=== PATIENT | male | born 1980 | race Caucasian/White ===

== ENCOUNTER 2017-05-24 12:33 | Emergency (ER) | payer SELFPAY ==
--- NOTE | 2017-05-24 13:05 | EDM.PDOC ---
ED HPI GENERAL MEDICAL PROBLEM - General Chief Complaint: Lower Extremity Injury/Pain Stated Complaint: KNEE PAIN IN LT Time Seen by Provider: 05/24/17 12:58 - History of Present Illness INITIAL COMMENTS - FREE TEXT/NARRATIVE: HISTORY AND PHYSICAL: History of present illness: Patient 37-year-old white male presents with concern of acute lower extremity injury and a formal fall which he sustained a contusion to his mid tibia and an injury to his left knee. He denies other trauma or concern Review of systems: As per history of present illness and below otherwise all systems reviewed and negative. Past medical history: As per history of present illness and as reviewed below otherwise noncontributory. Surgical history: As per history of present illness and as reviewed below otherwise noncontributory. Social history: No reported history of drug or alcohol abuse. Family history: As per history of present illness and as reviewed below otherwise noncontributory. Physical exam: HEENT: Atraumatic, normocephalic, pupils reactive, negative for conjunctival pallor or scleral icterus, mucous membranes moist, throat clear, neck supple, nontender, trachea midline. Lungs: Clear to auscultation, breath sounds equal bilaterally, chest nontender. Heart: S1S2, regular, negative for clicks, rubs, or JVD. Abdomen: Soft, nondistended, nontender. Negative for masses or hepatosplenomegaly. Negative for costovertebral tenderness. Pelvis: Stable nontender. Genitourinary: Deferred. Rectal: Deferred. Extremities: Patient has some small ecchymosis and tenderness noted at the level of the mid left tibia his left knee has no gross effusion joint is grossly stable is no crepitation or point tenderness CMS in neurovascular exam is unremarkable Neuro: Awake, alert, oriented. Cranial nerves II through XII unremarkable. Cerebellum unremarkable. Motor and sensory unremarkable throughout. Exam nonfocal. Diagnostics: X-ray left knee/tib-fib Therapeutics: Knee immobilizer/crutches Impression: #1 acute lower extremity injury (contusion tib-fib) #2 acute left knee injury Definitive disposition and diagnosis as appropriate pending reevaluation and review of above. - Related Data Allergies Allergy/AdvReac Type Severity Reaction Status Date / Time No Known Allergies Allergy Verified 10/17/14 09:18 Home Meds: Home Meds . [No Known Home Meds] 10/17/14 [History] Social & Family History - Tobacco Use Smoking Status *Q: Current Every Day Smoker Years of Tobacco use: 13 Used Tobacco, but Quit: No Second Hand Smoke Exposure: No - Alcohol Use Days Per Week of Alcohol Use: 0 - Recreational Drug Use Recreational Drug Use: No Review of Systems - Review of Systems Review Of Systems: ROS reveals no pertinent complaints other than HPI. ED EXAM, GENERAL - Physical Exam Exam: See Below (See dictation) Departure - Departure Time of Disposition: 14:01 Disposition: Home, Self-Care 01 Condition: Good Clinical Impression: Knee injury, Contusion - Discharge Information Referrals: PCP,None [Primary Care Provider] - Forms: ED Department Discharge Additional Instructions: The following information is given to patients seen in the emergency department who are being discharged to home. This information is to outline your options for follow-up care. We provide all patients seen in our emergency department with a follow-up referral. The need for follow-up, as well as the timing and circumstances, are variable depending upon the specifics of your emergency department visit. If you don't have a primary care physician on staff, we will provide you with a referral. We always advise you to contact your personal physician following an emergency department visit to inform them of the circumstance of the visit and for follow-up with them and/or the need for any referrals to a consulting specialist. The emergency department will also refer you to a specialist when appropriate. This referral assures that you have the opportunity for followup care with a specialist. All of these measure are taken in an effort to provide you with optimal care, which includes your followup. Under all circumstances we always encourage you to contact your private physician who remains a resource for coordinating your care. When calling for followup care, please make the office aware that this follow-up is from your recent emergency room visit. If for any reason you are refused follow-up, please contact the [facility] emergency department at and asked to speak to the emergency department charge nurse. [facility] [address] [place] [address], [address] [place] [address] Knee immobilizer/crutches as directed Motrin/Tylenol as discussed call to schedule routine appointment with orthopedic clinic above return as needed as discussed
--- NOTE | 2017-05-24 13:51 | CR ---
EXAMINATION: Left tibia and fibula and left knee HISTORY: Pain COMPARISON: None TECHNIQUE: 2 views of the left tibia and fibula and 3 views of the left knee. FINDINGS: There is no acute osseous abnormality, dislocation, or fracture. No joint effusion identifi ed. Joint spaces are preserved. Small Achilles insertional enthesophyte. Mild soft tissue edema versus varices noted along the lateral aspect of the leg. IMPRESSION: 1. No acute osseous abnormalities.
[2017-05-24 14:40] VITALS: BP 120/68
== END 2017-05-24 14:38 | disposition home or self-care (01) ==
LOC: MW.ED 12:33
DX: S80.02XA Contusion of left knee, initial encounter (principal); F17.210 Nicotine dependence, cigarettes, uncomplicated; W19.XXXA Unspecified fall, initial encounter
CPT/HCPCS: 73562-26-LT; 73562-LT; 73590-26-LT; 73590-LT; 99282; 99283

== ENCOUNTER 2018-04-09 06:19 | Emergency (ER) | payer BC ==
[2018-04-09] MEDS ORDERED: Sodium Chloride 0.9% 10 ML Syringe FLUSH PRN (06:38)
[2018-04-09] MEDS ORDERED: Sodium Chloride 0.9% 2.5 ML Syringe FLUSH PRN (06:38)
[2018-04-09] MEDS ORDERED: Ondansetron 4 MG/2 ML SDV IVPUSH ONE (06:47)
[2018-04-09] MEDS ORDERED: Sodium Chloride 0.9% 1,000 ML IV ONE (06:47)
[2018-04-09] MEDS ORDERED: Morphine 4 MG/ML Syringe IVPUSH ONE (06:47)
--- NOTE | 2018-04-09 07:02 | EDM.PDOC ---
ED HPI GENERAL MEDICAL PROBLEM - General Chief Complaint: Abdominal Pain Stated Complaint: LOWER LEFT ABDOMINAL PAIN Time Seen by Provider: 04/09/18 06:23 Source of Information: Reports: Patient History Limitations: Reports: No Limitations - History of Present Illness INITIAL COMMENTS - FREE TEXT/NARRATIVE: History of present illness: []Patient awoke at 4:30 this morning with sharp severe left inguinal pain. He vomited one time with the pain and states he has the chills but no fevers. Has had a bowel movement without diarrhea and is passing gas. 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 Review of systems: As per history of present illness and below otherwise all systems reviewed and negative. Past medical history: As per history of present illness and as reviewed below otherwise noncontributory. Surgical history: As per history of present illness and as reviewed below otherwise noncontributory. Social history: No reported history of drug or alcohol abuse. Family history: As per history of present illness and as reviewed below otherwise noncontributory. Physical exam: General: Well developed, well nourished in NAD HEENT: Atraumatic, normocephalic, pupils reactive, negative for conjunctival pallor or scleral icterus, mucous membranes moist, throat clear, neck supple, nontender, trachea midline. Lungs: Clear to auscultation, breath sounds equal bilaterally, chest nontender. Heart: S1S2, regular, negative for clicks, rubs, or JVD. Abdomen: Soft, nondistended, nontender. Negative for masses or hepatosplenomegaly. Negative for costovertebral tenderness. Pelvis: Stable nontender. Genitourinary: Deferred. Rectal: Deferred. Extremities: Atraumatic, negative for cords or calf pain. Neurovascular unremarkable. Neuro: Awake, alert, oriented. Cranial nerves II through XII unremarkable. Cerebellum unremarkable. Motor and sensory unremarkable throughout. Exam nonfocal. Diagnostics: []CBC and chemistry are negative, UA shows large blood, CT abdomen and pelvis is negative for kidney stone, bowel obstruction, hernia or any other abnormalities. Therapeutics: []IV hydrated, morphine, Pepcid and Zofran given with relief of symptoms Impression: []Hematuria, left inguinal pain likely stone passed prior to CT Plan: []Increase fluids follow-up with primary care return if symptoms worsen or change Definitive disposition and diagnosis as appropriate pending reevaluation and review of above. Left Lower Abdomen Pain Score (Numeric/FACES): 10 - Related Data Allergies Allergy/AdvReac Type Severity Reaction Status Date / Time No Known Allergies Allergy Verified 04/09/18 06:38 Home Meds: Home Meds . [No Known Home Meds] 10/17/14 [History] Past Medical History HEENT History: Reports: Impaired Vision - Past Surgical History HEENT Surgical History: Reports: Tonsillectomy Social & Family History - Family History Family Medical History: Noncontributory - Caffeine Use Caffeine Use: Reports: None ED ROS GENERAL - Review of Systems Review Of Systems: See Below (The history of present illness) ED EXAM, GI/ABD - Physical Exam Exam: See Below (See history of present illness) Course - Vital Signs Last Recorded V/S: Last Vital Signs Temp 97.4 F 04/09/18 07:30 Pulse 55 L 04/09/18 07:30 Resp 18 04/09/18 07:30 BP 142/74 H 04/09/18 07:30 Pulse Ox 98 04/09/18 07:30 - Orders/Labs/Meds Orders: Active Orders 24 hr Category Date Time Status Patient Status [ADT] Stat ADT 04/09/18 08:10 Active Abdomen Pelvis w Cont [CT] Stat Exams 04/09/18 07:14 Taken Chest 2V [CR] Stat Exams 04/09/18 09:39 Taken UA W/MICROSCOPIC [URIN] Stat Lab 04/09/18 09:02 Ordered Saline Lock Insert [OM.PC] Stat Oth 04/09/18 06:38 Ordered Labs: Laboratory Tests 04/09/18 04/09/18 04/09/18 Range/Units 06:51 06:51 09:02 WBC 9.78 (4.0-11.0) K/uL RBC 5.08 (4.50-5.90) M/uL Hgb 16.5 (13.0-17.0) g/dL Hct 46.7 (38.0-50.0) % MCV 91.9 (80.0-98.0) fL MCH 32.5 H (27.0-32.0) pg MCHC 35.3 (31.0-37.0) g/dL RDW Std Deviation 49.0 (28.0-62.0) fl RDW Coeff of Donte 14 (11.0-15.0) % Plt Count 274 (150-400) K/uL MPV 11.40 (7.40-12.00) fL Neut % (Auto) 68.6 (48.0-80.0) % Lymph % (Auto) 18.9 (16.0-40.0) % Bell % (Auto) 9.1 (0.0-15.0) % Eos % (Auto) 2.9 (0.0-7.0) % Baso % (Auto) 0.5 (0.0-1.5) % Neut # (Auto) 6.7 H (1.4-5.7) K/uL Lymph # (Auto) 1.9 (0.6-2.4) K/uL Bell # (Auto) 0.9 H (0.0-0.8) K/uL Eos # (Auto) 0.3 (0.0-0.7) K/uL Baso # (Auto) 0.1 (0.0-0.1) K/uL Nucleated RBC % 0.0 /100WBC Nucleated RBCs # 0 K/uL Sodium 140 (136-148) mmol/L Potassium 4.0 (3.5-5.1) mmol/L Chloride 106 (98-107) mmol/L Carbon Dioxide 26.2 (21.0-32.0) mmol/L BUN 10 (7.0-18.0) mg/dL Creatinine 1.0 (0.8-1.3) mg/dL Est Cr Clr Drug Dosing 116.52 mL/min Estimated GFR (MDRD) > 60.0 ml/min Glucose 143 H (74-106) mg/dL Calcium 9.6 (8.5-10.1) mg/dL Total Bilirubin 0.4 (0.2-1.0) mg/dL AST 24 (15-37) IU/L ALT 59 (14-63) IU/L Alkaline Phosphatase 92 (46-116) U/L Total Protein 7.7 (6.4-8.2) g/dL Albumin 4.1 (3.4-5.0) g/dL Globulin 3.6 H (2.0-3.5) g/dL Albumin/Globulin Ratio 1.1 L (1.3-2.8) Lipase 105 (73-393) U/L Urine Color YELLOW Urine Appearance CLEAR Urine pH 6.5 (5.0-8.0) Ur Specific Remlap 1.010 (1.001-1.035) Urine Protein NEGATIVE (NEGATIVE) mg/dL Urine Glucose (UA) NEGATIVE (NEGATIVE) mg/dL Urine Ketones NEGATIVE (NEGATIVE) mg/dL Urine Occult Blood LARGE H (NEGATIVE) Urine Nitrite NEGATIVE (NEGATIVE) Urine Bilirubin NEGATIVE (NEGATIVE) Urine Urobilinogen 1.0 (<2.0) EU/dL Ur Leukocyte Esterase NEGATIVE (NEGATIVE) Urine RBC 35-40 (0-2/HPF) Urine WBC 0-2 (0-5/HPF) Ur Epithelial Cells FEW (NONE-FEW) Urine Bacteria FEW (NEGATIVE) Meds: Medications Discontinued Medications Generic Name Dose Route Start Last Admin Trade Name Freq PRN Reason Stop Dose Admin Famotidine 20 mg 04/09/18 09:04 04/09/18 09:17 Pepcid IVPUSH 04/09/18 09:05 20 mg ONETIME ONE Administration Sodium Chloride 1,000 mls @ 999 mls/hr 04/09/18 06:47 04/09/18 07:38 Normal Saline IV 04/09/18 07:47 999 mls/hr .Bolus ONE Administration Iopamidol 100 ml 04/09/18 09:57 04/09/18 09:57 Isovue Multipack-370 (76%) IVPUSH 04/09/18 09:58 100 ml ONETIME STA Administration Morphine Sulfate 4 mg 04/09/18 06:47 04/09/18 07:39 Morphine IVPUSH 04/09/18 06:48 4 mg ONETIME ONE Administration Morphine Sulfate Confirm 04/09/18 07:03 04/09/18 07:55 Morphine Administered 04/09/18 07:04 Not Given Dose 4 mg .ROUTE .STK-MED ONE Morphine Sulfate 4 mg 04/09/18 07:49 04/09/18 07:57 Morphine IVPUSH 04/09/18 07:50 Not Given ONETIME ONE Ondansetron HCl 4 mg 04/09/18 06:47 04/09/18 07:40 Zofran IVPUSH 04/09/18 06:48 4 mg ONETIME ONE Administration Sodium Chloride 10 ml 04/09/18 06:38 Saline Flush FLUSH ASDIRECTED PRN Keep Vein Open Sodium Chloride 2.5 ml 04/09/18 06:38 Saline Flush FLUSH ASDIRECTED PRN Keep Vein Open Departure - Departure Time of Disposition: 10:35 Disposition: Home, Self-Care 01 Condition: Good Clinical Impression: Left inguinal pain Hematuria Qualifiers: Hematuria type: unspecified type Qualified Code(s): R31.9 - Hematuria, unspecified - Discharge Information Referrals: PCP,None [Primary Care Provider] - Forms: ED Department Discharge Additional Instructions: The following information is given to patients seen in the emergency department who are being discharged to home. This information is to outline your options for follow-up care. We provide all patients seen in our emergency department with a follow-up referral. The need for follow-up, as well as the timing and circumstances, are variable depending upon the specifics of your emergency department visit. If you don't have a primary care physician on staff, we will provide you with a referral. We always advise you to contact your personal physician following an emergency department visit to inform them of the circumstance of the visit and for follow-up with them and/or the need for any referrals to a consulting specialist. The emergency department will also refer you to a specialist when appropriate. This referral assures that you have the opportunity for follow-up care with a specialist. All of these measure are taken in an effort to provide you with optimal care, which includes your follow-up. Under all circumstances we always encourage you to contact your private physician who remains a resource for coordinating your care. When calling for follow-up care, please make the office aware that this follow-up is from your recent emergency room visit. If for any reason you are refused follow-up, please contact the [facility] Emergency Department at and asked to speak to the emergency department charge nurse. [facility] Care [address] [place] [address] - My Orders Last 24 Hours: My Active Orders 04/09/18 06:38 Saline Lock Insert [OM.PC] Stat 04/09/18 07:14 Abdomen Pelvis w Cont [CT] Stat 04/09/18 08:10 Patient Status [ADT] Stat 04/09/18 09:02 UA W/MICROSCOPIC [URIN] Stat 04/09/18 09:39 Chest 2V [CR] Stat - Assessment/Plan Last 24 Hours: My Active Orders 04/09/18 06:38 Saline Lock Insert [OM.PC] Stat 04/09/18 07:14 Abdomen Pelvis w Cont [CT] Stat 04/09/18 08:10 Patient Status [ADT] Stat 04/09/18 09:02 UA W/MICROSCOPIC [URIN] Stat 04/09/18 09:39 Chest 2V [CR] Stat
[2018-04-09] MEDS ORDERED: Morphine 2 MG/ML Syringe ONE (07:03)
[2018-04-09 07:21] LABS: CHLORIDE,CL 106 mmol/L (98-107); SODIUM,NA 140 mmol/L (136-148)
[2018-04-09] MEDS ORDERED: Morphine 2 MG/ML Syringe IVPUSH ONE (07:49)
[2018-04-09 08:04] VITALS: BP 142/74
[2018-04-09] MEDS ORDERED: Famotidine 20 MG/2 ML SDV IVPUSH ONE (09:04)
[2018-04-09] MEDS ORDERED: Iopamidol 755 MG/ML 500 ML Multipack Bottle IVPUSH STA (09:57)
--- NOTE | 2018-04-11 15:27 | CT ---
EXAM DATE: 04/09/18 PATIENT'S AGE: 37 Patient: BRIE TAY Facility: [place], [place] Site . Site : 1980 Study: CT Abdomen/Pelvis [id number]/14/2018 8:49:33 AM Ordering Physician: Luciano Fleming Final Report: INDICATION: Left inguinal pain. Recent gastric binding. TECHNIQUE: Multiple axial images were obtained from the diaphragm to symphysis pubis after administration of 100 mL of Isovue-370 intravenously. Sagittal and coronal re- formatted images were obtained. COMPARISON: None. FINDINGS: There is a minimal left pleural effusion associated atelectasis. There is no focal liver lesion. The spleen, pancreas, gallbladder and adrenal glands are unremarkable. There is no mass or hydronephrosis in the kidneys. There are postoperative changes consistent with a gastric bypass. The abdominal aorta is normal in caliber. There is no adenopathy seen. There is no evidence of a bowel obstruction. The appendix is visualized in the right lower quadrant and is unremarkable. There is no free fluid identified in the abdomen or pelvis. There is no inguinal hernia seen on this study. IMPRESSION: 1. Minimal left pleural effusions with associated atelectasis. 2. Status post gastric bypass. Dictated by Mick Babb MD @ 04/09/2018 9:16:19 AM Please note that all CT scans at this facility use dose modulation, iterative reconstruction, and/or weight-based dosing when appropriate to reduce radiation dose to as low as reasonably achievable. Dictated by: Mick Babb MD @ 04/09/2018 09:16:27 (Electronic Signature) Report Signed by Proxy. [facility]
--- NOTE | 2018-04-11 15:36 | CR ---
EXAM DATE: 04/09/18 PATIENT'S AGE: 37 Patient: BRIE TAY Facility: [place], [place] Site . Site : 1980 Study: XRay Chest [id number]/14/2018 10:12:55 AM Ordering Physician: Luciano Fleming Final Report: INDICATION: Pain. Shortness of breath. COMPARISON: None. FINDINGS: PA and lateral views of the chest were obtained. The cardiac silhouette and pulmonary vasculature are within normal limits. The lungs are clear bilaterally. There are degenerative changes in the spine. IMPRESSION: No evidence of acute pulmonary disease. Dictated by Mick Babb MD @ 04/09/2018 10:59:20 AM Dictated by: Mick Babb MD @ 04/09/2018 10:59:40 (Electronic Signature) Report Signed by Proxy. [facility]
== END 2018-04-09 10:51 | disposition home or self-care (01) ==
LOC: MW.ED 06:19
DX: R10.32 Left lower quadrant pain (principal); R31.9 Hematuria, unspecified
CPT/HCPCS: 36415; 71046; 74177; 80053; 81001; 82962; 83690; 85025; 96361; 96374; 96375; 99284; J2270; J2405; J7040; Q9967; 99283; J3490

== ENCOUNTER 2021-05-03 11:15 | Emergency (ER) | payer SELFPAY ==
[2021-05-03] MEDS ORDERED: Albuterol 8 GM Inhaler INH STA (11:47)
--- NOTE | 2021-05-03 11:51 | EDM.PDOC ---
ED HPI GENERAL MEDICAL PROBLEM - General Chief Complaint: Respiratory Problem Stated Complaint: PNEUMONIA Time Seen by Provider: 05/03/21 11:17 - History of Present Illness INITIAL COMMENTS - FREE TEXT/NARRATIVE: History of present illness: [] This patient has been sick for 4 days of upper respiratory symptoms. He has runny nose congestion and cough. Now over the last 4 days he developed chest tightness and difficulty breathing worse with exertion and deep breath. He is a smoker. He is not vaccinated for Covid. 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 He did have bronchitis as an . Review of systems: As per history of present illness and below otherwise all systems reviewed and negative. Past medical history: As per history of present illness and as reviewed below otherwise noncontributory. Surgical history: As per history of present illness and as reviewed below otherwise noncontributory. Social history: No reported history of drug or alcohol abuse. Family history: As per history of present illness and as reviewed below otherwise noncontributory. Physical exam: Constitutional - well developed, well-nourished and in no acute distress HEENT - normocephalic, no evidence of trauma - external nose and mouth normal - no mass in neck and no JVD - mucosae moist EYES - full EOM, PERRL, no icterus - no evidence of inflammation, injection, or drainage Respiratory - no respiratory distress, equal bilateral expansion, lungs with musical rales and wheezes in the upper lung rooney and diminished breath sounds with expiratory wheezes in the lower lung rooney. Cardiovascular - Regular Rhythm with S1 and S2 appreciated and no murmur, gallop or rub. GI - abdomen soft without distension or organomegaly - normal bowel sounds - no guard or rebound Musculoskeletal no gross deformity of long bones or joints - no tenderness, swelling or edema Neurologic - Alert and oriented times four - CN II-XII grossly intact - motor sensory and coordination symmetrically normal Psychiatric - appropriate mood and affect with normal thought content Hematologic - No petechiae or purpura - mucosa appropriate color and sclera not pale - normal nail bed color and refill Integument - no rash or evidence of trauma - normal turgor Diagnostics: [] Therapeutics: [] Impression: [] Plan: [] Definitive disposition and diagnosis as appropriate pending reevaluation and review of above. Generalized Pain Score (Numeric/FACES): 4 - Related Data Allergies Allergy/AdvReac Type Severity Reaction Status Date / Time No Known Allergies Allergy Verified 05/03/21 11:52 Home Meds: Home Meds Azithromycin 250 mg PO DAILY #6 tablet 05/03/21 [Rx] Past Medical History HEENT History: Reports: Impaired Vision Other Gastrointestinal History: Gastric sleeve placed 10 weeks ago - Past Surgical History HEENT Surgical History: Reports: Tonsillectomy Social & Family History - Family History Family Medical History: No Pertinent Family History - Caffeine Use Caffeine Use: Reports: None ED ROS GENERAL - Review of Systems Review Of Systems: Comprehensive ROS is negative, except as noted in HPI. ED EXAM, GENERAL - Physical Exam Exam: See Below Free Text/Narrative:: My physical exam is in the HPI #1 Interpretation EKG Interpretation Comments: EKG sinus rhythm heart rate 65 MO interval 144 QRS axis [address] and T impression normal EKG Course - Vital Signs Text/Narrative:: 12:30 PM patient was improved after the inhaler and instruction with the spacer. COVID-19 test and troponin pending. X-ray read as no acute process other than chronic granulomatous disease in the left side per radiology but to me the left diaphragm is indistinct and suggest along with his clinical presentation and he may have left lower lobe pneumonia. Last Recorded V/S: Last Vital Signs Temp 36.9 C 05/03/21 11:38 Pulse 64 05/03/21 11:38 Resp 18 05/03/21 11:38 BP 121/79 05/03/21 11:38 Pulse Ox 98 05/03/21 11:38 - Orders/Labs/Meds Orders: Active Orders 24 hr Category Date Time Status EKG 12 Lead [EKG Documentation Completion] [RC] STAT Care 05/03/21 11:49 Active RT Post Treatment Assessment [RC] Click to Edit Care 05/03/21 11:47 Active RT Pre-Treatment Assessment [RC] Click to Edit Care 05/03/21 11:47 Active Labs: Laboratory Tests 05/03/21 05/03/21 Range/Units 12:09 12:29 Troponin I < 0.050 (0.000-0.056) ng/mL SARS-CoV-2 RNA (VENESSA) NEGATIVE (NEGATIVE) Meds: Medications Discontinued Medications Generic Name Dose Route Start Last Admin Trade Name Freq PRN Reason Stop Dose Admin Albuterol 8 gm 05/03/21 11:47 05/03/21 12:10 Albuterol 8 Gm Inhaler INH 05/03/21 11:48 1 dose ONETIME STA Administration Departure - Departure Time of Disposition: 13:23 Disposition: Home, Self-Care 01 Condition: Good Clinical Impression: Lower respiratory tract infection, Bronchospasm - Discharge Information Instructions: Bronchospasm, Adult, Community-Acquired Pneumonia, Adult, [id number] Referrals: PCP,None [Primary Care Provider] - Forms: ED Department Discharge Additional Instructions: Drink plenty of fluids [facility] [address] [place] [id number] [id number] The following information is given to patients seen in the emergency department who are being discharged to home. This information is to outline your options for follow-up care. We provide all patients seen in our emergency department with a follow-up referral. The need for follow-up, as well as the timing and circumstances, are variable depending upon the specifics of your emergency department visit. If you don't have a primary care physician on staff, we will provide you with a referral. We always advise you to contact your personal physician following an emergency department visit to inform them of the circumstance of the visit and for follow-up with them and/or the need for any referrals to a consulting specialist. The emergency department will also refer you to a specialist when appropriate. This referral assures that you have the opportunity for follow-up care with a specialist. All of these measure are taken in an effort to provide you with optimal care, which includes your follow-up. Under all circumstances we always encourage you to contact your private physician who remains a resource for coordinating your care. When calling for follow-up care, please make the office aware that this follow-up is from your recent emergency room visit. If for any reason you are refused follow-up, please contact the [facility] Emergency Department at and asked to speak to the emergency department charge nurse. Sepsis Event Note (ED) - Focused Exam Vital Signs: Vital Signs Temp Pulse Resp BP Pulse Ox 05/03/21 11:38 36.9 C 64 18 121/79 98 - My Orders Last 24 Hours: My Active Orders 05/03/21 11:47 RT Post Treatment Assessment [RC] Click to Edit RT Pre-Treatment Assessment [RC] Click to Edit 05/03/21 11:49 EKG 12 Lead [EKG Documentation Completion] [RC] STAT - Assessment/Plan Last 24 Hours: My Active Orders 05/03/21 11:47 RT Post Treatment Assessment [RC] Click to Edit RT Pre-Treatment Assessment [RC] Click to Edit 05/03/21 11:49 EKG 12 Lead [EKG Documentation Completion] [RC] STAT
--- NOTE | 2021-05-03 12:39 | CR ---
INDICATION: Chest tightness. TECHNIQUE: AP portable chest. COMPARISON: Two-view chest April 09, 2018. FINDINGS: Granulomatous change left hemithorax. Both lungs are otherwise clear. Normal heart size, pulmonary vascularity, and included skeleton. IMPRESSION: No acute cardiopulmonary process identified. No significant change other than technique. Dictated by Alex Pollock MD @ 05/03/2021 12:38:[address] Alex Pollock @ May 03 2021 12:38PM
[2021-05-03 13:44] VITALS: BP 119/72; PULSE 77
== END 2021-05-03 13:45 | disposition home or self-care (01) ==
LOC: MW.ED 11:15
DX: J22 Unspecified acute lower respiratory infection (principal); J98.01 Acute bronchospasm; Z20.822 Contact with and (suspected) exposure to COVID-19
CPT/HCPCS: 36415; 71045; 84484; 87635; 93005; 99285; A9270; U0002

== ENCOUNTER 2023-05-05 06:34 | Day surgery (SDC) | payer BC ==
[~2023-05-05 06:34] MED LIST: Lactated Ringers 1,000 ML IV SCH
[2023-05-05] MEDS ORDERED: Ondansetron 4 MG/2 ML SDV IVPUSH PRN (07:28)
[2023-05-05] MEDS ORDERED: fentaNYL 50 MCG/ML SDV IVPUSH PRN (07:28)
[2023-05-05] MEDS ORDERED: HYDROmorphone 1 MG/ML Syringe IVPUSH PRN (07:28)
[2023-05-05] MEDS ORDERED: Naloxone 0.4 MG/ML SDV IVPUSH PRN (07:28)
[2023-05-05] MEDS ORDERED: Albuterol 0.083% 2.5 MG/3 ML Neb Soln NEB PRN (07:28)
[2023-05-05] MEDS ORDERED: droPERidol 5 MG/2 ML SDV IVPUSH PRN (07:28)
[2023-05-05] MEDS ORDERED: Morphine 2 MG/ML SYRINGE IVPUSH PRN (07:28)
[2023-05-05] MEDS ORDERED: Metoclopramide 10 MG/2 ML SDV IVPUSH PRN (07:28)
[2023-05-05] MEDS ORDERED: Bupivacaine 0.25% 30 ML SDV ONE (07:50)
[2023-05-05] MEDS ORDERED: fentaNYL 250 MCG/5 ML SDV ONE (07:50)
[2023-05-05] MEDS ORDERED: Lidocaine 1% with EPINEPHrine 1:100,000 50 ML MDV ONE (07:50)
[2023-05-05] MEDS ORDERED: Propofol 200 MG/20 ML SDV ONE ×3 (07:50→09:24)
[2023-05-05] MEDS ORDERED: Lidocaine 2% 5 ML SDV ONE (07:51)
[2023-05-05] MEDS ORDERED: Ondansetron 4 MG/2 ML SDV ONE ×2 (07:51→09:25)
[2023-05-05] MEDS ORDERED: Dexmedetomidine 200 MCG/2 ML SDV ONE (07:52)
[2023-05-05] MEDS ORDERED: Water For Injection, Sterile 20 ML ONE ×2 (07:52→09:11)
[2023-05-05] MEDS ORDERED: ceFAZolin 2 GM in Sodium Chloride 0.9% 50 ML IV ONE (08:00)
[2023-05-05] MEDS ORDERED: propofoL 50 ML ONE (08:52)
[2023-05-05] MEDS ORDERED: ceFAZolin 2 GM Vial ONE (09:11)
[2023-05-05] MEDS ORDERED: Ketorolac 30 MG/ML SDV ONE (09:25)
[2023-05-05 11:11] VITALS: BP 98/54; PULSE 55
== END 2023-05-05 11:20 | disposition home or self-care (01) ==
LOC: MW.SDS 06:34
PROVIDERS: ATTEND Orthopaedic Surgery
DX: S83.232A Complex tear of medial meniscus, current injury, left knee, initial encounter (principal); M24.10 Other articular cartilage disorders, unspecified site; E66.3 Overweight; E66.01 Morbid (severe) obesity due to excess calories; Z87.891 Personal history of nicotine dependence; Z68.39 Body mass index [BMI] 39.0-39.9, adult
CPT/HCPCS: 29881; J0131; J0690; J1885; J2405; J2704; J3010; J3490; J7120

== ENCOUNTER 2023-08-25 08:26 | Day surgery (SDC) | payer BC ==
[~2023-08-25 08:26] MED LIST changes: +Albuterol 0.083% 2.5 MG/3 ML Neb Soln NEB PRN; +HYDROmorphone 1 MG/ML Syringe IVPUSH PRN; +Metoclopramide 10 MG/2 ML SDV IVPUSH PRN; +Morphine 2 MG/ML SYRINGE IVPUSH PRN; +Naloxone 0.4 MG/ML SDV IVPUSH PRN; +Ondansetron 4 MG/2 ML SDV IVPUSH PRN; +droPERidol 5 MG/2 ML SDV IVPUSH PRN
[2023-08-25] MEDS ORDERED: Bupivacaine 0.5%/EPINEPHrine 1:200,000 30 ML SDV ONE (08:53)
[2023-08-25] MEDS ORDERED: fentaNYL 100 MCG/2 ML SDV ONE ×2 (09:32→09:33)
[2023-08-25] MEDS ORDERED: Propofol 200 MG/20 ML SDV ONE (09:33)
[2023-08-25] MEDS ORDERED: Lidocaine 2% 5 ML SDV ONE (09:34)
[2023-08-25] MEDS ORDERED: Ondansetron 4 MG/2 ML SDV ONE (09:34)
[2023-08-25] MEDS ORDERED: Magnesium Sulfate (4.06 MEQ/ML) 5 GM/10 ML SDV ONE (09:34)
[2023-08-25] MEDS ORDERED: Dexamethasone 4 MG/ML 5 ML MDV ONE (09:35)
[2023-08-25] MEDS ORDERED: Glycopyrrolate 0.2 MG/ML SDV ONE (09:35)
[2023-08-25] MEDS ORDERED: dexmedeTOMIDine HCl 200 MCG/2 ML SDV ONE (09:35)
[2023-08-25] MEDS ORDERED: Water For Injection, Sterile 20 ML ONE (09:42)
[2023-08-25] MEDS ORDERED: Midazolam 1 MG/ML 2 ML SDV ONE (10:10)
[2023-08-25] MEDS ORDERED: ceFAZolin 2 GM Vial ONE (10:31)
[2023-08-25] MEDS ORDERED: ceFAZolin 1 GM Vial ONE (10:31)
[2023-08-25] MEDS ORDERED: Ketorolac 30 MG/ML SDV ONE (11:11)
[2023-08-25] MEDS: fentaNYL 50 MCG/ML SDV IVPUSH PRN ×2 (12:05→12:33)
[2023-08-25 14:05] VITALS: BP 100/54; PULSE 60
== END 2023-08-25 13:35 | disposition home or self-care (01) ==
LOC: MW.SDS 08:26
PROVIDERS: ATTEND Orthopaedic Surgery
DX: S83.231A Complex tear of medial meniscus, current injury, right knee, initial encounter (principal); K21.9 Gastro-esophageal reflux disease without esophagitis; F17.210 Nicotine dependence, cigarettes, uncomplicated; Z98.84 Bariatric surgery status; Z79.899 Other long term (current) drug therapy; Z88.6 Allergy status to analgesic agent; Z88.8 Allergy status to other drugs, medicaments and biological substances
CPT/HCPCS: 29881; J0131; J0690; J1100; J1885; J2250; J2405; J2704; J3010; J3475; J3490; J7120

== ENCOUNTER 2023-12-26 14:18 | Emergency (ER) | payer BC ==
[2023-12-26 17:39] VITALS: BP 122/74; PULSE 80
== END 2023-12-26 17:38 | disposition home or self-care (01) ==
LOC: MW.ED 14:18
DX: M79.675 Pain in left toe(s) (principal); E66.9 Obesity, unspecified; Z68.38 Body mass index [BMI] 38.0-38.9, adult; Z88.6 Allergy status to analgesic agent; Z79.899 Other long term (current) drug therapy
CPT/HCPCS: 73630-26-LT; 73630-LT; 99282; 99283